=== PATIENT | female | born 1975 | race African-American/Black ===

== ENCOUNTER 2016-11-02 05:32 | Day surgery (SDC) | payer BC ==
[~2016-11-02] VITALS: Ht 157.5 cm; Wt 99.8 kg
[~2016-11-02 05:32] MED LIST: PROAIR HFA8.5 GM IH
[2016-11-02 06:38] VITALS: BP 108/75
[2016-11-02 10:32] VITALS: BP 113/60
[2016-11-02 11:23] VITALS: BP 103/65
[2016-11-02 13:30] VITALS: BP 103/59
== END 2016-11-02 13:40 | disposition home or self-care (01) ==
LOC: SDC 05:32 → CANRESERV 09:13 → ENRESERV 09:13 → SDC 09:20
DX: N92.1 Excessive and frequent menstruation with irregular cycle (principal); N94.6 Dysmenorrhea, unspecified; N88.2 Stricture and stenosis of cervix uteri; N39.3 Stress incontinence (female) (male); E66.9 Obesity, unspecified; Z68.38 Body mass index [BMI] 38.0-38.9, adult
CPT/HCPCS: 87086; 88305; J0690; J1100; J1170; J2250; J2405; J2710; J3010